=== PATIENT | male | born 1975 | race Hispanic/Latino ===

== ENCOUNTER → 2023-04-25 | Emergency (ER) | payer BC ==
[~2023-04-25] MED LIST: HYDROCODONE/APAP 5/325 MG TAB ONE; SMZ./TMP. 800/160 MG TABLET ONE
--- OUTSIDE RECORDS SUMMARY | 2023-04-25 18:14 | XMS REPORT | Continuity of Care Document ---
Author Name Unknown Address [address] [address] [place] [address] [facility] Address [address] [place] [address] Care Team Providers Care Bladder Cleaner Name Role Phone Maninder RAMIREZ, Mark A Primary Care Physician [phone] Doctor Unassigned, Man Attending Clinician U DONNA [place] Attending Clinician Unavailable Rain CARRANZA Attending Clinician Unavailable Rain Bennett Attending Clinician [phone] Marc Do MD Attending Clinician [phone] Payers Payer Name Policy Type Policy Number Effective Date Expirati on Date Source Problems Condition Name Condition Details Condition Category Status Onset Date Resolution Date Last Treatment Date Treating Clinician Comments Source No known active problems No known active problems Disease [facility] Allergies, Adverse Reactions, Alerts Allergy Name Allergy Type Status Severity Reaction(s) Onset Date Inactive Date Treating Clinician Comments Source NO KNOWN ALLERGIE S Drug Class Active [facility] Social History Social Habit Start Date Stop Date Quantity Comments Source Sexual orientation U [facility] Exposure to SARS-CoV-2 (event) 2021-12-20 00:00:00 2021-12-30 12:45:00 Not sure [facility] Sex Ass[birth year] At 1975 00:00:00 1975 00:00:00 [facility] Smoking Status Start Date Stop Date Source Tobacco smoking consumption unknown [facility] Medications Ordered Medication Name Filled Medication Name Start Date Stop Date Current Medication? Ordering Clinician Indication Dosage Frequency Signature (SIG) Comments Components Source cyclobenzap rine (FLEXERIL) tablet 10 mg 2022-02 22:30: 00 01-23 21:51 :00 No 10mg 10 mg, Oral, ONCE, 1 dose, On 01/23/23 at 1630, Routine [facility] cyclobenzap rine 10 mg tablet 2022-02 00:00: 00 Yes [id number] 10mg Take 1 tablet by mouth 3 (three) times daily as needed for Muscle Spasms for up to 15 doses. [facility] methylPREDN ISolone 4 mg tablets 2022-02 00:00: 00 Yes [id number] Take by mouth SEE-INSTRU CTIONS. follow package directions [facility] lidocainme .salicyl-ca ps-menth (1ST MEDX-PATCH WITH LIDOCAINE) 4-20-0.025- 5 % PtMd 2022-02 00:00: 00 Yes [id number] 1{patch } Apply 1 Patch to area(s) in the morning. [facility] cyclobenzap rine 10 mg tablet 2022-02 00:00: 00 Yes [id number] 10mg Take 1 tablet by mouth 3 (three) times daily as needed for Muscle Spasms for up to 15 doses. [facility] methylPREDN ISolone 4 mg tablets 2022-02 00:00: 00 Yes [id number] Take by mouth SEE-INSTRU CTIONS. follow package directions [facility] lidocain-me .salicyl-ca ps-menth (1ST MEDX-PATCH WITH LIDOCAINE) 4-20-0.025- 5 % PtMd 2022-02 00:00: 00 Yes [id number] 1{patch } Apply 1 Patch to area(s) in the morning. [facility] ibuprofen (IBU) tablet 600 mg 2021-02 19:15: 00 12-30 19:09 :00 No 600mg 600 mg, Oral, ONCE, 1 dose, On Tue12/30/21 at 1315, ROMAN [facility] ibuprofen 600 mg tablet 2021-02 00:00: 00 Yes [id number] 600mg Take 1 tablet by mouth every 6 (six) hours as needed for Pain (scale 4-6). [facility] methocarbam oL 500 mg tablet 2021-02 00:00: 00 Yes [id number] 500mg Take 1 tablet by mouth 4 (four) times daily. [facility] ibuprofen 600 mg tablet 2021-02 00:00: 00 Yes [id number] 600mg Take 1 tablet by mouth every 6 (six) hours as needed for Pain (scale 4-6). [facility] methocarbam oL 500 mg tablet 2021-02 00:00: 00 Yes [id number] 500mg Take 1 tablet by mouth 4 (four) times daily. [facility] ibuprofen 600 mg tablet 2021-02 00:00: 00 Yes [id number] 600mg Take 1 tablet by mouth every 6 (six) hours as needed for Pain (scale 4-6). [facility] methocarbam oL 500 mg tablet 2021-02 00:00: 00 Yes [id number] 500mg Take 1 tablet by mouth 4 (four) times daily. [facility] ibuprofen 600 mg tablet 2021-02 00:00: 00 Yes [id number] 600mg Take 1 tablet by mouth every 6 (six) hours as needed for Pain (scale 4-6). [facility] methocarbam oL 500 mg tablet 2021-02 00:00: 00 Yes [id number] 500mg Take 1 tablet by mouth 4 (four) times daily. [facility] ibuprofen 600 mg tablet 2021-02 00:00: 00 Yes [id number] 600mg Take 1 tablet by mouth every 6 (six) hours as needed for Pain (scale 4-6). [facility] methocarbam oL 500 mg tablet 2021-02 00:00: 00 Yes [id number] 500mg Take 1 tablet by mouth 4 (four) times daily. [facility] Vital Signs Vital Name Observation Time Observation Value Comments [facility] Systolic blood pressure 2023-01-23 21:27:00 143 [facility]Hg[facility] Di[facility] 2023-01-23 21:27:00 91 mm[Hg[facility] Heart rate 2023-01-23 21:27:00 87 /min [facility] Body temperature 2023-01-23 21:27:00 36.94 Daphne [facility] Respiratory rate 2023-01-23 21:27:00 19 /min [facility] Body height 2023-01-23 21:27:00 172.7 cm [facility] Body weight 2023-01-23 21:27:00 87.998 kg [facility] BMI 2023-01-23 21:27:00 29.50 kg/m2 [facility] Oxygen saturation in Arterial blood by Pulse oximetry 2023-01-23 21:27:00 96 /min [facility] Systolic blood pressure 2021-12-30 18:45:00 156 mm[Hg] [facility] Diastolic blood pressure 2021-12-30 18:45:00 99 mm[Hg[facility] Heart rate 2021-12-30 18:45:00 87 /min [facility] Body temperature 2021-12-30 18:45:00 36.61 Daphne [facility] Respiratory rate 2021-12-30 18:45:00 18 /min [facility] Body height 2021-12-30 18:45:00 172.7 cm [facility] Body weight 2021-12-30 18:45:00 68.04 kg [facility] BMI 2021-12-30 18:45:00 22.81 kg/m2 [facility] Oxygen saturation in Arterial blood by Pulse oximetry 2021-12-30 18:45:00 97 /min [facility] Systolic blood pressure 2020-04-19 05:44:00 140 mm[Hg] [facility] Diastolic blood pressure 2020-04-19 05:44:00 92 mm[Hg[facility] Heart rate 2020-04-19 05:44:00 88 /min [facility] Respiratory rate 2020-04-19 05:44:00 16 /min [facility] Oxygen saturation in Arterial blood by Pulse oximetry 2020-04-19 05:44:00 99 /min [place] [facility] Body temperature 2020-04-19 01:44:00 37.06 Daphne [facility] Body weight 2020-04-19 01:44:00 68.04 kg [facility] Procedures Procedure Date / Time Performed Performing Clinician Source ASSIGNMENT OF BENEFITS 2023-01-23 21:45:39 Docto r Unassigned, Man [facility] CONSENT/REFUSAL FOR DIAGNOSIS AND TREATMENT 2023-01-23 21:03:45 Doctor Unassigned, Man [facility] AUTHORIZATION FOR RELEASE OF PHI 2022-03-31 06:01:00 Doctor Unassigned, Man [facility] AUTHORIZATION FOR RELEASE OF PHI 2022-02-03 06:01:00 Doctor Unassigned, Man [facility] CT HEAD WO CONTRAST 2020-04-19 04:29:43 Marc Do [facility] NOTICE OF PRIVACY PRACTICES 2020-04-19 01:37:47 Doctor Unassigned, Man [facility] CONSENT/REFUSAL FOR DIAGNOSIS AND TREATMENT 2020-04-19 01:37:34 Doctor Unassigned, Man [facility] Encounters Start Date/Time End Date/Time Encounter Type Admission Type Attending Clinicians Care Facility Care Department Encounter ID Source 2023-01-27 00:00:00 2023-01-27 00:00:00 Patient Secure Msg Doctor Unassigned, Man [facility] [id number] [facility] 2023-01-23 15:29:00 2023-01-23 15:58:00 Emergency X JOHNNIEDONNA [facility] ERT [id number] [facility] 2023-01-23 15:29:00 2023-01-23 15:58:00 Emergency Johnnie, Donna [facility] [id number] [facility] 2022-03-31 00:00:00 2022-03-31 00:00:00 Orders Only Doctor Unassigned, Man [facility] [id number] [facility] 2022-02-03 00:00:00 2022-02-03 00:00:00 Orders Only Doctor Unassigned, Man [facility] [id number] [facility] 2021-12-30 12:46:00 2021-12-30 13:23:00 Emergency X Rain CARRANZA [facility] ERT [id number] [facility] 2021-12-30 12:46:00 2021-12-30 13:23:00 Emergency Rain Carranza [facility] [id number] [id number] [id number] [facility] 2020-04-18 19:52:00 2020-04-18 23:46:00 Emergency Marc Do [facility] [id number] [facility] 2020-04-18 19:38:00 2020-04-18 19:38:00 Emergency X [facility] ERT [id number] [facility] Results Test Description Test Time Test Comments Results Resul t Comments Source CT HEAD WO CONTRAST 2020-04-07 3 04:32:56 No acute intracranial abnormality.EXAM: CT HEAD WO CONTRAST HISTORY: Head trauma, minor, normal mental status (Age 19-64y) TECHNIQUE: CT of the head was performed without intravenous contrast.Sagittal and coronal reformats were generated. COMPARISON: None. FINDINGS: The ventricles and sulci are normal in caliber and configuration. Nohydrocephalus, midline shift or pathological extra-axial fluid collectionis present. The basal cisterns are unremarkable. There is no acute intracranial hemorrhage or significant mass effect. Noparenchymal attenuation abnormality. The flores-white matter differentiationis preserved. The mastoid air cells and paranasal air sinuses are clear. The calvariumand central skull base are unremarkable. [facility] Radiant Results Inft User - 04/18/2020 10:34 PM CSTEXAM: CT HEAD WO CONTRASTHISTORY: Head trauma, minor, normal mental status (Age 19-64y) TECHNIQUE: CT of the head was performed without intravenous contrast.Sagittal and coronal reformats were generated.COMPARISON: None.FINDINGS: The ventricles and sulci are normal in caliber and configuration. Nohydrocephalus, midline shift or pathological extra-axial fluid collectionis present. The basal cisterns are unremarkable.There is no acute intracranial hemorrhage or significant mass effect. Noparenchymal attenuation abnormality. The flores-white matter differentiationis preserved.The mastoid air cells and paranasal air sinuses are clear. The calvariumand central skull base are unremarkable.CRISTELA Hernandez acute intracranial abnormality. [facility]
[2023-04-25 20:09] LABS: Specific Gravity 1.013 (1.005-1.030); Sqamous Epithelial <5 /HPF (None Seen); Urine Bacteria None Seen /HPF (<20); Urine Bilirubin NEGATIVE (Negative); Urine Blood Negative (Negative); Urine Clarity Clear (Clear); Urine Color Light-Yellow (Yellow); Urine Culture Reflex Order NOT NEEDED; Urine Glucose NEGATIVE (Negative); Urine Ketones NEGATIVE (Negative); Urine Micro Reflex YN NO BILL MICROSCOPIC; Urine Mucus Slight /HPF (None Seen); Urine Nitrite NEGATIVE (Negative); Urine Protein NEGATIVE (Negative); Urine RBC None Seen /HPF (None Seen); Urine Urobilinogen Normal (Normal); Urine WBC <5 /HPF (<5); Urine pH 6.5 (5.0-7.0)
--- NOTE | 2023-04-25 20:32 | ER ---
Nurse's Notes [facility] Name: Harlan Merritt Jr Age: 47 yrs Sex: Male : 1975 Arrival Date: 04/25/2023 Time: 18:11 Bed 19 Private MD: Diagnosis: Epididymitis Presentation: 04/24 19:16 Chief complaint: Patient states: this morning started feeling pain in right testicle , iw getting worse. Coronavirus screen: At this time, the client does not indicate any symptoms associated with coronavirus-19. Ebola Screen: No symptoms or risks identified at this time. Initial Sepsis Screen: Does the patient meet any 2 criteria? No. Patient's initial sepsis screen is negative. Does the patient have a suspected source of infection? No. Patient's initial sepsis screen is negative. Risk Assessment: Do you want to hurt yourself or someone else? Patient reports no desire to harm self or others. Onset of symptoms was April 25, 2023. 19:16 Method Of Arrival: Ambulatory iw 19:16 Acuity: YESENIA 3 iw Historical: - Allergies: 19:16 No Known Allergies; iw - Home Meds: 19:16 None [Active]; iw - PMHx: 19:16 None; iw - PSHx: 19:16 None; iw - Immunization history:: Adult Immunizations up to date. - Social history:: Smoking status: Patient denies any tobacco usage or history of. Screenin:52 [facility] ED Fall Risk Assessment (Adult) History of falling in the last 3 months, cp4 including since admission No falls in past 3 months (0 pts) Confusion or Disorientation No (0 pts) Intoxicated or Sedated No (0 pts) Impaired Gait No (0 pts) Mobility Assist Device Used No (0 pt) Altered Elimination No (0 pt) Score/Fall Risk Level 0 - 2 = Low Risk Oriented to surroundings, Maintained a safe environment, Assessed \T\ reinforced patient's understanding of fall precautions, Hourly rounding (assess needs \T\ fall precautionary measures) done. Abuse screen: Denies threats or abuse. Nutritional screening: No deficits noted. Tuberculosis screening: No symptoms or risk factors identified. Assessment: 20:52 General: Appears in no apparent distress. Behavior is calm, cooperative, appropriate cp4 for age. Pain: Complains of pain in groin. : No deficits noted. Reports pain scrotum. Vital Signs: 19:17 BP 136 / 84; Pulse 72; Resp 19; Temp 98.2; Pulse Ox 99% ; Weight 88.45 kg; Height 5 ft. iw 8 in. ; Pain 7/10; 19:17 Body Mass Index 29.65 (88.45 kg, 172.72 cm) iw 19:17 Pain Scale: Adult ED Course: 18:13 Patient arrived in ED. sb4 18:13 [facility]arita Hall [facility]. sb4 18:13 Juliocesar West MD is Attending Physician. sb4 19:16 Triage completed. iw 19:32 Melba Keith is Primary Nurse. cp4 19:40 US Scrotum Testicles In Process Unspecified. EDMS 19:52 [facility] Sent. cp4 20:32 Júnior Steele MD is Referral Physician. sb4 20:52 No provider procedures requiring assistance completed. Patient did not have IV access cp4 during this emergency room visit. 20:52 Bed in low position. Call light in reach. Side rails up X 1. Provided Education on: cp4 scrotal pain. 20:57 Arm band placed on right wrist. Patient placed in an exam room, on a stretcher. cp4 Administered Medications: 19:52 Drug: HYDROcodone-acetaminophen PO 5 mg-325 mg 2 tabs PO once Route: PO; cp4 20:52 Follow up: Response: No adverse reaction; Pain is decreased cp4 20:52 Drug: Trimethoprim-Sulfamethoxazole PO (160 mg-800 mg (DS) 1 tablet PO once Route: PO; cp4 20:52 Follow up: Response: No adverse reaction cp4 Medication: 20:52 VIS not applicable for this client. cp4 Outcome: 20:32 Discharge ordered by . sb4 20:52 Discharged to home ambulatory, cp4 20:52 Condition: stable 20:52 Discharge instructions given to patient, Instructed on discharge instructions, follow up and referral plans. medication usage, Demonstrated understanding of instructions, follow-up care, medications, Prescriptions given X 3, 20:57 Patient left the ED. cp4 Signatures: Dispatcher [employer] EDMS Lelo Vega RN RN iw Margarita Hall PA-C PA-C sb4 Melba Keith cp4 Corrections: (The following items were deleted from the chart) 19:18 19:17 Pulse 72bpm; Resp 19bpm; Pulse Ox 99%; Temp 98.2F; 88.45 kg; Height 5 ft. 8 in.; iw BMI: 29.6; Pain 7/10, Adult; iw
--- NOTE | 2023-04-25 20:32 | EDPHYS ---
Physician Documentation [facility] [place] [place] Name: Harlan Merritt Jr Age: 47 yrs Sex: Male : 1975 Arrival Date: 04/25/2023 Time: 18:11 Bed 19 Private MD: ED Physician Juliocesar West HPI: 04/24 19:21 This 47 yrs old Male presents to ER via Ambulatory with complaints of sb4 Testicular Pain. 19:22 The patient presents with scrotal pain, of the right side, with swelling, with sb4 erythema. Onset: The symptoms/episode began/occurred this morning. Modifying factors: The symptoms are alleviated by nothing, the symptoms are aggravated by nothing. Associated signs and symptoms: The patient has no apparent associated signs or symptoms. The patient has not experienced similar symptoms in the past. The patient has been recently seen by a physician: at a clinic, with similar presenting complaints, and was sent to the [facility] Emergency Department for further evaluation. Historical: - Allergies: 19:16 No Known Allergies; iw - Home Meds: 19:16 None [Active]; iw - PMHx: 19:16 None; iw - PSHx: 19:16 None; iw - Immunization history:: Adult Immunizations up to date. - Social history:: Smoking status: Patient denies any tobacco usage or history of. ROS: 19:22 Constitutional: Negative for fever, chills, and weight loss, sb4 19:22 : Positive for testicular pain 19:22 All other systems are negative, Exam: 19:22 Constitutional: This is a well developed, well nourished patient who is awake, alert, sb4 and in no acute distress. Head/Face: Normocephalic, atraumatic. Eyes: Extra-ocular motions intact. Periorbital areas with no swelling, redness, or edema. Cardiovascular: Regular rate and rhythm with a normal S1 and S2. Respiratory: Lungs have equal breath sounds bilaterally, clear to auscultation and percussion. No rales, rhonchi or wheezes noted. No increased work of breathing, no retractions or nasal flaring. Abdomen/GI: Soft, non-tender, no distension. Skin: Warm, dry with normal turgor. Normal color with no rashes, no lesions, and no evidence of cellulitis. MS/ Extremity: Pulses equal, no cyanosis. Neurovascular intact. Full, normal range of motion. Neuro: Awake and alert, GCS 15, oriented to person, place, time, and situation. Motor strength 5/5 in all extremities. Sensory grossly intact. 20:14 : Male external genitalia: normal, no abrasion, no discharge, no erythema, no injury, sb4 no swelling, tenderness, of the epididymis area, that is moderate, Vital Signs: 19:17 BP 136 / 84; Pulse 72; Resp 19; Temp 98.2; Pulse Ox 99% ; Weight 88.45 kg; Height 5 ft. iw 8 in. ; Pain 7/10; 19:17 Body Mass Index 29.65 (88.45 kg, 172.72 cm) iw 19:17 Pain Scale: Adult iw MDM: 18:39 Patient medically screened. sb4 19:22 Differential diagnosis: testicular torsion, epididymitis, STI, UTI. sb4 20:13 Data reviewed: vital signs, nurses notes, lab test result(s), radiologic studies, and sb4 as a result, I will discharge patient. Counseling: I had a detailed discussion with the patient and/or guardian regarding the historical points, exam findings, and any diagnostic results supporting the discharge/admit diagnosis, lab results, radiology results, to return to the emergency department if symptoms worsen or persist or if there are any questions or concerns that arise at home. 04/24 19:22 Order name: [facility]; Complete Time: 20:12 sb4 04/24 19:19 Order name: Scrotum Testicles sb4 Administered Medications: 19:52 Drug: HYDROcodone-acetaminophen PO 5 mg-325 mg 2 tabs PO once Route: PO; cp4 20:52 Follow up: Response: No adverse reaction; Pain is decreased cp4 20:52 Drug: Trimethoprim-Sulfamethoxazole PO (160 mg-800 mg (DS) 1 tablet PO once Route: PO; cp4 20:52 Follow up: Response: No adverse reaction cp4 Disposition Summary: 04/25/23 20:32 Discharge Ordered Notes: Location: Home sb4 Problem: new sb4 Symptoms: have improved sb4 Condition: Stable sb4 Diagnosis - Epididymitis sb4 Followup: sb4 - With: Júnior Steele MD - When: As needed - Reason: Recheck today's complaints, Re-evaluation by your physician Discharge Instructions: - Discharge Summary Sheet sb4 - Epididymitis sb4 Forms: - Work release form sb4 - Thank You Letter sb4 - Antibiotic Education sb4 - Prescription Opioid Use sb4 - Patient Portal Instructions sb4 - Leadership Thank You Letter sb4 Prescriptions: - ketorolac 10 mg Oral tablet - take 1 tablet ORAL route every 4-6 hours for 3 days while awake; do not exceed sb4 4 doses per day; 20 tablet; Refills: 0, Product Selection Permitted - Tramadol 50 mg Oral Tablet - take 1 tablet ORAL route every 8 hours as needed; 12 tablet; Refills: 0, sb4 Product Selection Permitted - Bactrim DS 800-160 mg Oral Tablet - take 1 tablet ORAL route every 12 hours for 10 days; 20 tablet; Refills: 0, sb4 Product Selection Permitted Addendum: 04/27/2023 14:26 I was immediately available for consultation during this patient's visit. I did not e c2 personally see the patient or discuss the patient with the NATALIO. . Signatures: Dispatcher [employer] Lelo Mendoza, Margarita Palomares RN, PA-C PA-C sb4 Juliocesar West MD MD ec2 Melba Keith 4
--- NOTE | 2023-04-25 20:57 | RAD REPORT ---
EXAM DESCRIPTION: US - Scrotum Testicles - 04/25/2023 7:38 pm CLINICAL HISTORY: testicular torsion r/o right testicle COMPARISON: No comparisons TECHNIQUE: Sonographic grayscale and color flow images of the scrotum were obtained. FINDINGS: The right testicle measures 4.6 x 2.7 x 3.3 cm. No intratesticular masses or evidence of t esticular torsion. The left testicle measures 3.8 x 2.3 x 3.4 cm. No intratesticular masses or evidence of testicular to rsion. Both epididymides are normal in size and appearance. No pathologic fluid collections. IMPRESSION: Unremarkable scrotal ultrasound.
[2023-04-25 21:33] VITALS: BP 136/84; TEMP 98.2; O2SAT 99
== END ==
LOC: ER 18:11
DX: N45.1 Epididymitis (principal)
CPT/HCPCS: 76870; 81001; 99283